=== PATIENT | male | born 1935 | race Hispanic/Latino ===

== ENCOUNTER → 2024-05-13 | Outpatient (CLI) | payer OTHER ==
--- NOTE | 2024-05-13 14:37 | HMCIMG ---
US VENOUS DOPPLER BILATERAL REASON: other symptoms and signs involving the circulatory and resp COMPARISON: None Technique: Bilateral venous doppler ultrasound was performed with spectral analysis and color flow imaging technique. FINDINGS: There is a normal appearance of the common femoral, deep femoral, the profunda femoris and popliteal veins. Proximal calf veins appear normal as well. There is normal response to compression and augmentation. There is no evidence of deep venous thrombosis. IMPRESSION: Normal bilateral lower extremity venous Doppler ultrasound.
--- NOTE | 2024-05-13 14:41 | HMCIMG ---
US ARTERIAL BILAT LOW EXT DUPL REASON: other symptoms and signs involving the circulatory and resp COMPARISON: None TECHNIQUE: Bilateral lower extremity return Doppler evaluation was performed with spectral analysis and color flow imaging. FINDINGS: Right leg shows triphasic waveforms present from common femoral artery through the popliteal artery, the posterior tibial artery is triphasic as well. Anterior tibial and dorsalis pedis arteries are biphasic. There is mild decreased flow velocity in the anterior tibial and dorsalis pedis arteries. Left leg shows triphasic waveforms common femoral artery through the distal superficial femoral artery. There are biphasic wave waveforms and the remainder of the lower extremity. There is mild arterial flow velocity decrease from the popliteal artery downward. IMPRESSION: 1. 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 2. 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
== END | disposition home or self-care (01) ==
LOC: RAH 12:26
PROVIDERS: ATTEND Internal Medicine
DX: I70.203 Unspecified atherosclerosis of native arteries of extremities, bilateral legs (principal); R09.89 Other specified symptoms and signs involving the circulatory and respiratory systems; R60.0 Localized edema; I70.90 Unspecified atherosclerosis
CPT/HCPCS: 93925; 93970